=== PATIENT | female | born 1995 | race Hispanic/Latino ===

== ENCOUNTER 2022-11-08 12:23 | Day surgery (SDC) | payer BC ==
[2022-11-08] MEDS ORDERED: hydrALAZINE 20 MG/ML VIAL SLOW IVP PRN (13:06)
[2022-11-08 14:03] LABS: Creatinine, Urine 35.96 mg/dL (47-110); Protein, Urine Random Quant Less than 10 mg/dL (1-14)
[2022-11-08 14:21] LABS: #Eosinphils 0.1 10x3/uL (0.0-0.5); #Monocytes 0.8 10x3/uL (0.0-1.1); #Neutrophils 6.7 10x3/uL (1.5-8.4); %Basophils 0.2 % (0.0-2.0); %Eosinophils 1.1 % (0.0-6.0); %Lymphocytes 19.9 % (18.0-47.0); %Monocytes 8.3 % (0.0-10.0); Mean Corpuscular HGB CONC 35.2 g/dL (32.0-36.0); Mean Corpuscular Hemoglobin 28.6 pg (27.0-33.0); Mean Corpuscular Volume 81.1 fl (81.6-98.3); Mean Platelet Volume 13.7 fl (7.4-10.4); Platelet Count 126 10x3/uL (150-450); RBC Distribution Width 13.4 % (11.5-14.5); Red Blood Cell (RBC) Count 4.55 10x6/uL (3.90-5.03); White Blood Cell (WBC) Count 9.6 10x3/uL (3.5-10.5)
[2022-11-08 14:26] LABS: ALT (SGPT) 24 U/L (8-55); AST (SGOT) 31 U/L (5-34); Alkaline Phosphatase 206 U/L (40-110); Anion Gap 13 mmol/L (10-20); BUN (Urea Nitrogen) 7 mg/dL (7.0-18.7); Bilirubin, Total 0.2 mg/dL (0.2-1.2); Calc. Creatinine Clearance 0 mL/min (70-130); Calcium 8.4 mg/dL (7.8-10.44); Carbon Dioxide 18 mmol/L (22-29); Chloride 111 mmol/L (98-107); Estimated GFR 126; Globulin 3.1 g/dL (2.4-3.5); Glucose 72 mg/dL (70-105); Potassium 4.2 mmol/L (3.5-5.1); Protein, Total 6.1 g/dL (6.0-8.3); Sodium 138 mmol/L (136-145)
== END 2022-11-08 16:10 | disposition home health service (06) ==
LOC: CSHLD/OP 12:23
PROVIDERS: ATTEND Obstetrics & Gynecology
DX: O16.9 Unspecified maternal hypertension, unspecified trimester (principal); O26.899 Other specified pregnancy related conditions, unspecified trimester; R10.32 Left lower quadrant pain; M54.9 Dorsalgia, unspecified; Z3A.00 Weeks of gestation of pregnancy not specified; Z88.0 Allergy status to penicillin; Z88.1 Allergy status to other antibiotic agents
CPT/HCPCS: 36415; 76770; 80053; 82570; 84156; 85025; 99283

== ENCOUNTER 2022-12-05 14:49 | Inpatient (IN) | payer BC ==
[~2022-12-05 14:49] MED LIST: Bupivacaine HCl 0.5%/Epinephrine 1:200,000/PF 30 ml Vial ONE; Bupivacaine PF 0.5% 30 ML VIAL ONE
[2022-12-05 16:07] VITALS: BMI 32.8
[2022-12-05] MEDS ORDERED: Lorazepam 2 MG/ML VIAL SLOW IVP PRN ×2 (16:08→16:13)
[2022-12-05] MEDS ORDERED: Labetalol HCl 100 MG/20 ML VIAL SLOW IVP PRN ×2 (16:08)
[2022-12-05] MEDS ORDERED: hydrALAZINE 20 MG/ML VIAL SLOW IVP PRN ×4 (16:08→16:13)
[2022-12-05] MEDS ORDERED: Ibuprofen 800 MG TAB PO PRN (16:13)
[2022-12-05] MEDS ORDERED: Butorphanol Tartrate 1 MG/ML VIAL SLOW IVP PRN (16:13)
[2022-12-05] MEDS ORDERED: Promethazine HCl 25 MG/ML VIAL IM PRN ×2 (16:13→19:16)
[2022-12-05] MEDS ORDERED: Ondansetron PF 4 MG/2 ML Vial IVP PRN ×2 (16:13→19:16)
[2022-12-05] MEDS ORDERED: Lidocaine 1% (PF) 30 ML VIAL SC PRN (16:13)
[2022-12-05] MEDS ORDERED: Calcium Gluc 4.6 MEQ/10 ML (100 MG/ML) SLOW IVP PRN (16:13)
[2022-12-05] MEDS ORDERED: HYDROcodone/Acetaminophen 5/325 mg Tablet PO PRN ×2 (16:13)
[2022-12-05] MEDS ORDERED: Magnesium Sulfate 20 gm/500 ml 20 GM/500 ML BAG IVPB SCH (16:15)
[2022-12-05] MEDS ORDERED: NS w/ Oxytocin 30 units 500 ML IV SCH ×2 (16:15)
[2022-12-05] MEDS ORDERED: Magnesium Sulfate 20 gm/500 ml 20 GM/500 ML BAG ONE (16:24)
[2022-12-05] MEDS ORDERED: hydrALAZINE 20 MG/ML VIAL ONE (16:25)
[2022-12-05] MEDS ORDERED: NIFEdipine 10 MG CAP ONE (16:43)
[2022-12-05] MEDS: Lactated Ringer's 1,000 ML IV SCH (16:45)
[2022-12-05] MEDS: Magnesium Sulfate 20 gm/500 ml 20 GM/500 ML BAG IVPB SCH (16:59)
[2022-12-05 17:36] LABS: Creatinine, Urine 26.56 mg/dL (47-110)
[2022-12-05 18:02] LABS: Hemoglobin 14.1 g/dL (12.0-15.5); Mean Corpuscular HGB CONC 34.1 g/dL (32.0-36.0); Mean Corpuscular Hemoglobin 27.8 pg (27.0-33.0); Mean Corpuscular Volume 81.5 fl (81.6-98.3); Mean Platelet Volume 14.7 fl (7.4-10.4); Platelet Count 129 10x3/uL (150-450); Red Blood Cell (RBC) Count 5.08 10x6/uL (3.90-5.03); White Blood Cell (WBC) Count 12.3 10x3/uL (3.5-10.5)
[2022-12-05 18:23] LABS: ALT (SGPT) 52 U/L (8-55); Albumin 3.1 g/dL (3.5-5.0); Alkaline Phosphatase 342 U/L (40-110); Anion Gap 17 mmol/L (10-20); BUN (Urea Nitrogen) 15 mg/dL (7.0-18.7); Bilirubin, Total 0.3 mg/dL (0.2-1.2); Calc. Creatinine Clearance 168 mL/min (70-130); Calcium 8.4 mg/dL (7.8-10.44); Carbon Dioxide 16 mmol/L (22-29); Chloride 108 mmol/L (98-107); Estimated GFR 119; Globulin 3.4 g/dL (2.4-3.5); Glucose 107 mg/dL (70-105); Potassium 4.5 mmol/L (3.5-5.1); Protein, Total 6.5 g/dL (6.0-8.3); Sodium 136 mmol/L (136-145)
[2022-12-05 18:24] LABS: AST (SGOT) 63 U/L (5-34)
[2022-12-05 18:25] LABS: Syphilis Antibody Nonreactive (Nonreactive); Syphilis Antibody Index 0.07 S/CO (<1.00 Non-Reactive)
[2022-12-05 18:26] LABS: HBSAg Index 0.14 S/CO (0-0.99); Hep B Surf Ag Non-Reactive S/CO (NonReactive)
[2022-12-05] MEDS ORDERED: Fentanyl 2 mcg/Bup 0.1% Cadd 100 ML ONE (18:41)
[2022-12-05] MEDS ORDERED: ePHEDrine Sulfate 50 MG/10 ML VIAL SLOW IVP PRN (19:16)
[2022-12-05] MEDS ORDERED: diphenhydrAMINE 50 MG/ML VIAL IVP PRN (19:16)
[2022-12-05] MEDS ORDERED: Naloxone HCl 0.4 mg/ml Vial IVP PRN ×2 (19:16)
[2022-12-05] MEDS ORDERED: Acetaminophen 325 MG TAB PO PRN (19:16)
[2022-12-05] MEDS ORDERED: Moisturizing Cream (Eucerin) 113 GM JAR TOP PRN (19:16)
[2022-12-05] MEDS ORDERED: Communication Order-Pharmacy FS SCH (19:30)
[2022-12-05] MEDS ORDERED: Fentanyl 2 mcg/Bupivacaine 0.1% Cassette 100 ML EPIDURAL SCH (19:30)
[2022-12-05] MEDS ORDERED: Lactated Ringer's 500 ML IV PRN (19:36)
[2022-12-05 22:26] LABS: SARS-CoV-2 NAA Rapid Test Not Detected (NotDetected)
[2022-12-06] MEDS ORDERED: Misoprostol 200 MCG TAB ONE (03:28)
[2022-12-06] MEDS ORDERED: Carboprost 250 MCG/ML AMP ONE (03:28)
[2022-12-06] MEDS ORDERED: Milk Of Magnesia 30 ML UDCUP PO PRN (04:13)
[2022-12-06] MEDS ORDERED: Misoprostol 200 MCG TAB VAG PRN (04:13)
[2022-12-06] MEDS ORDERED: hydrALAZINE 20 MG/ML VIAL SLOW IVP PRN (04:13)
[2022-12-06] MEDS ORDERED: Bisacodyl 10 MG SUPP PR PRN (04:13)
[2022-12-06] MEDS ORDERED: Benzocaine-Menthol 82.5 ML CAN TOP PRN (04:13)
[2022-12-06] MEDS ORDERED: Boostrix 0.5 ML (Tdap) VIAL (>/=7 yrs of age) IM ONE (04:13)
[2022-12-06] MEDS ORDERED: NS w/ Oxytocin 30 units 500 ML IV SCH (04:15)
[2022-12-06] MEDS: Magnesium Sulfate 20 gm/500 ml 20 GM/500 ML BAG IVPB SCH ×2 (04:17→14:35)
[2022-12-06] MEDS: Ibuprofen 800 MG TAB PO SCH ×2 (06:20→14:34)
[2022-12-06 09:07] LABS: Hemoglobin 14.2 g/dL (12.0-15.5); Mean Corpuscular HGB CONC 34.4 g/dL (32.0-36.0); Mean Corpuscular Hemoglobin 27.9 pg (27.0-33.0); Mean Corpuscular Volume 81.1 fl (81.6-98.3); Platelet Count 165 10x3/uL (150-450); RBC Distribution Width 14.1 % (11.5-14.5); Red Blood Cell (RBC) Count 5.09 10x6/uL (3.90-5.03); White Blood Cell (WBC) Count 21.2 10x3/uL (3.5-10.5)
[2022-12-06 09:22] LABS: ALT (SGPT) 45 U/L (8-55); AST (SGOT) 40 U/L (5-34); Albumin 2.9 g/dL (3.5-5.0); Alkaline Phosphatase 321 U/L (40-110); Anion Gap 13 mmol/L (10-20); BUN (Urea Nitrogen) 12 mg/dL (7.0-18.7); Bilirubin, Total 0.3 mg/dL (0.2-1.2); Calc. Creatinine Clearance 161 mL/min (70-130); Calcium 7.4 mg/dL (7.8-10.44); Carbon Dioxide 18 mmol/L (22-29); Chloride 105 mmol/L (98-107); Estimated GFR 114; Globulin 3.3 g/dL (2.4-3.5); Glucose 119 mg/dL (70-105); Potassium 3.9 mmol/L (3.5-5.1); Protein, Total 6.2 g/dL (6.0-8.3); Sodium 132 mmol/L (136-145)
[2022-12-06 09:24] LABS: Magnesium 6.7 mg/dL (1.6-2.6)
[2022-12-06] MEDS: NIFEdipine XL 60 MG TAB PO SCH (09:29)
[2022-12-06] MEDS ORDERED: HYDROcodone/Acetaminophen 5/325 mg Tablet PO PRN ×2 (19:30)
[2022-12-07] MEDS: Ibuprofen 800 MG TAB PO SCH ×4 (00:04→22:01)
[2022-12-07] MEDS: Lactated Ringer's 1,000 ML IV SCH ×3 (02:11→08:02)
[2022-12-07] MEDS: Ferrous Sulfate 325 MG TAB PO SCH ×3 (02:12→15:53)
[2022-12-07] MEDS: Docusate 100 MG CAP PO SCH ×3 (02:12→22:01)
[2022-12-07] MEDS: Prenatal Vitamin 1 TAB PO SCH ×2 (02:12→08:22)
[2022-12-07] MEDS: NIFEdipine XL 60 MG TAB PO SCH (08:22)
[2022-12-08] MEDS: Lactated Ringer's 1,000 ML IV SCH ×2 (04:49→08:00)
[2022-12-08] MEDS: Ibuprofen 800 MG TAB PO SCH ×2 (05:30→13:25)
[2022-12-08] MEDS: Ferrous Sulfate 325 MG TAB PO SCH (07:59)
[2022-12-08 08:01] VITALS: BP 128/81; TEMP 98.3
[2022-12-08] MEDS: NIFEdipine XL 60 MG TAB PO SCH (08:38)
[2022-12-08] MEDS: Prenatal Vitamin 1 TAB PO SCH (08:38)
[2022-12-08] MEDS: Docusate 100 MG CAP PO SCH (08:38)
== END 2022-12-08 14:25 | disposition home or self-care (01) | DRG 807 ==
LOC: CSHLD/OP 14:49 → CSHLD 17:29 → CSHPP 12-07 05:08
PROVIDERS: ADMIT Obstetrics & Gynecology; ATTEND Obstetrics & Gynecology
PROC: 10907ZC Drainage of Amniotic Fluid, Therapeutic from Products of Conception, Via Natural or Artificial Opening (ICD-10-PCS; 2022-12-05)
PROC: 3E033VJ Introduction of Other Hormone into Peripheral Vein, Percutaneous Approach (ICD-10-PCS; 2022-12-05)
PROC: 10E0XZZ Delivery of Products of Conception, External Approach (ICD-10-PCS; principal; 2022-12-06)
DX: O14.14 Severe pre-eclampsia complicating childbirth (principal); Z37.0 Single live birth; O26.893 Other specified pregnancy related conditions, third trimester; Z67.21 Type B blood, Rh negative; Z88.0 Allergy status to penicillin; Z88.8 Allergy status to other drugs, medicaments and biological substances; Z3A.38 38 weeks gestation of pregnancy; Z20.822 Contact with and (suspected) exposure to COVID-19
CPT/HCPCS: 36415; 80053; 82570; 83735; 84156; 85027; 86780; 86850; 86900; 86901; 87340; J0360; J2405; J3475; S0020; U0002